=== PATIENT | male | born 1985 | race Caucasian/White ===

== ENCOUNTER 2017-02-16 23:59 | Emergency (ER) | payer OTHER ==
--- NOTE | ~2017-02-16 | CR141 ---
[facility] A Service of [facility] & [facility] RADIOLOGY TEXT RESULTS PATIENT: NIKO CHAMORRO LOCATION: [facility] : [birth year] UNIT #: [id number] AGE: [address]: Trupti Neal APRN SEX: M ORDER DR: [id number] [facility] [address] [place], [place] [address] [id number] E MR#: [id number] Acc #: [id number] NAME: NIKO CHAMORRO. : 1985 SEX: M STUDY DATE/TIME: 02/17/2017 1:52 UNIT: [facility] ROOM: STUDY DESCRIPTION: CR Hand Min 3 Views Lt Attending Physician: Trupti Neal A.P.R.N. Ordering Physician: Trupti Neal A.P.R.N. Primary Care Physician: Yang Castañeda M.D. MEDICAL IMAGING REPORT This report is preliminary unless electronic signature is present EXAM Left hand. INDICATION Left hand pain after trauma tonight. FINDINGS 3 views of the left hand were obtained. There is a prominent bony projection off of the ulnar side of the proximal phalanx of the thumb. There could be a fracture at the base of this abnormality seen on 1 view but otherwise the bones are normal. IMPRESSION There is about a 8-10 mm bony projection off of the base of the first proximal phalanx. On the oblique view there is a defect at the base that could possibly represent a small fracture. Correlation with the area of the patient's pain is recommended, otherwise the study appears normal. Dictated by... Kobi Neal M.D. THIS IS AN ELECTRONICALLY VERIFIED REPORT Kobi Neal M.D. at 02/17/2017 5:54 AM KATIE/francisco TD: 02/17/2017 04:09 JOB #: [id number] MEDICAL IMAGING REPORT Page 1 of 1 COPY
--- NOTE | ~2017-02-16 | EKG ---
PATIENT: NIKO CHAMORRO UNIT #: [id number] Ventricular Rate: 83 BPM Atrial Rate: 83 BPM P-R Interval: 110 ms QRS Duration: 82 ms Q-T Interval: 394 ms QTC Calculation(Bezet): 462 [address]: 99 [address]: 119 degrees Diagnosis Line: Sinus rhythm with short MS with occasional Diagnosis Line: Premature ventricular complexes Diagnosis Line: Lateral infarct Diagnosis Line: Rightward axis Diagnosis Line: Abnormal ECG Diagnosis Line: No previous ECGs available Diagnosis Line: Confirmed by MAURA GOOD MD ([id number]) on 02/18/2017 Diagnosis Line: 7:03:28 PM INTERPRETING MD: LATISHA DAY
--- NOTE | ~2017-02-16 | CR71 ---
[facility] A Service of [facility] & [facility] RADIOLOGY TEXT RESULTS PATIENT: NIKO CHAMORRO LOCATION: [facility] : 89 UNIT #: [id number] AGE: [address]: Trupti Neal APRN SEX: M ORDER DR: [id number] [facility] [address] [place], [place] [address] [id number] E MR#: [id number] Acc #: [id number] NAME: NIKO CHAMORRO. : 1985 SEX: M STUDY DATE/TIME: 02/17/2017 1:50 UNIT: [facility] ROOM: STUDY DESCRIPTION: CR Chest Single View Attending Physician: Trupti Neal A.P.R.N. Ordering Physician: Trupti Neal A.P.R.N. Primary Care Physician: Yang Castañeda M.D. MEDICAL IMAGING REPORT This report is preliminary unless electronic signature is present EXAM Portable chest HISTORY Shortness of air, drug overdose, symptoms started tonight. FINDINGS A portable view of the chest was obtained. The heart size and vascularity are normal, the lungs are clear and the bones are unremarkable. IMPRESSION No active disease. Dictated by... Kobi Neal M.D. THIS IS AN ELECTRONICALLY VERIFIED REPORT Kobi Neal M.D. at 02/17/2017 5:54 AM KATIE/ovidio TD: 02/17/2017 04:10 JOB #: [id number] MEDICAL IMAGING REPORT Page 1 of 1 COPY
[~2017-02-16 23:59] MED LIST: IBUPROFEN800 MG PO; ORUDIS75 M1 PO; ULTRAM PO; VICODIN 5/1 TAB 5/50 PO
[2017-02-17 02:31] LABS: AMPHETAMINE POS (NEG); BARBITURATES NEG (NEG); BENZODIAZEPINES NEG (NEG); COCAINE NEG (NEG); MARIJUANA NEG (NEG); OPIATES POS (NEG); TRICYCLIC ANTIDEPRESSANTS NEG (NEG); U METHADONE NEG (NEG)
== END 2017-02-17 03:19 | disposition home or self-care (01) ==
LOC: CED 23:59
PROVIDERS: Nurse Practitioner
DX: S60.222A Contusion of left hand, initial encounter (principal); F10.10 Alcohol abuse, uncomplicated; Y90.9 Presence of alcohol in blood, level not specified; F11.20 Opioid dependence, uncomplicated; F15.10 Other stimulant abuse, uncomplicated; X58.XXXA Exposure to other specified factors, initial encounter; F17.210 Nicotine dependence, cigarettes, uncomplicated; Z79.899 Other long term (current) drug therapy
CPT/HCPCS: 36415; 71010; 73130; 80307; 93005; 96360; 99284; G0480

== ENCOUNTER 2017-06-27 20:48 | Emergency (ER) | payer OTHER ==
[~2017-06-27] VITALS: Ht 180.3 cm; Wt 66.9 kg
== END 2017-06-27 22:32 | disposition home or self-care (01) ==
LOC: CED 20:48
DX: S51.812A Laceration without foreign body of left forearm, initial encounter (principal); F17.200 Nicotine dependence, unspecified, uncomplicated; Z79.82 Long term (current) use of aspirin; Z79.899 Other long term (current) drug therapy; W45.8XXA Other foreign body or object entering through skin, initial encounter; Y92.89 Other specified places as the place of occurrence of the external cause
CPT/HCPCS: 99283